=== PATIENT | female | born 1940 | race Caucasian/White ===

== ENCOUNTER 2018-03-16 11:58 | Emergency (ER) | payer OTHER ==
[~2018-03-16] VITALS: Ht 162.6 cm; Wt 91.4 kg
[2018-03-16 12:00] VITALS: BP 176/79
--- NOTE | 2018-03-16 12:15 | NUR ---
77 YO F BIB DAUGHTER W/ C/O INTERMITTENT SHARP "ALL OVER" 10/10 HEADACHE X 1-2 WKS. PT PRESENTS W/ COLD SYMPTOMS, CONGESTION/RUNNING NOSE, PRODUCTIVE COUGH X 1-2 WKS. PT REPORTS BURNING NERVE PAIN BEHIND HER EARS. PT DENIES RECENT HEAD INJURY, N/V, VISION CHANGES, OR DIZZINESS. PT IS AAOX4 TO PERSON, PLACE, TIME, AND SITUATION. RR ARE EVEN AND UNLABORED. PT WITH STEADY GAIT. NAD. PT POSITIONED TO COMFORT. AWAITING ER MD RUELAS. WILL CONTINUE TO MONITOR.
--- NOTE | 2018-03-16 12:31 | NUR ---
ER MD LENNON BY BEDSIDE EXAMINING PT
[2018-03-16] MEDS ORDERED: KETOROLAC 30 MG/ML VIAL IM ONE (12:40)
--- NOTE | 2018-03-16 12:50 | NUR ---
PT TO CT VIA LIZ ACCOMPANIED BY WAGE AND SALARY SPECIALIST
--- NOTE | 2018-03-16 13:02 | NUR ---
PT RETURNED FROM CT AND BACK TO 4 WITHOUT INCIDENT. ACCOMPANIED BY FUR STRETCHER.
[2018-03-16] MEDS ORDERED: fentaNYL 0.05 MG/ML VIAL IM ONE (13:55)
[2018-03-16] MEDS ORDERED: LORazepam 2 MG/ML VIAL IM ONE (13:55)
[2018-03-16 14:35] VITALS: BP 135/82
--- NOTE | 2018-03-16 14:35 | NUR ---
Patient discharged with v/s stable. Written and verbal after care instructions given and explained. Patient alert, oriented and verbalized understanding of instructions. Ambulatory with steady gait w cane. All questions addressed prior to discharge. ID band removed. Patient advised to follow up with PMD. Rx of MOTRIN 800MG AND ROBAXIN 500MG given. Patient educated on indication of medication including possible reaction and side effects. Opportunity to ask questions provided and answered.
== END 2018-03-16 14:35 | disposition home or self-care (01) ==
LOC: MED 11:58
DX: S09.11XA Strain of muscle and tendon of head, initial encounter (principal); R05 Cough; E11.9 Type 2 diabetes mellitus without complications; I10 Essential (primary) hypertension; X58.XXXA Exposure to other specified factors, initial encounter; Y93.89 Activity, other specified; Y92.89 Other specified places as the place of occurrence of the external cause; Y99.8 Other external cause status
CPT/HCPCS: 70450; 82948; 96372; 99284; J1885; J2060; J3010